=== PATIENT | female | born 1970 | race Caucasian/White ===

== ENCOUNTER 2017-03-12 09:52 | Emergency (ER) | payer MEDICAID ==
[2017-03-12 12:36] VITALS: BP 142/91
== END 2017-03-12 12:36 | disposition home or self-care (01) ==
LOC: ED 09:52
DX: R10.13 Epigastric pain (principal); R68.83 Chills (without fever); R11.0 Nausea; I10 Essential (primary) hypertension; E78.5 Hyperlipidemia, unspecified; Z88.0 Allergy status to penicillin

== ENCOUNTER 2018-12-16 10:37 | Emergency (ER) | payer MEDICAID ==
[~2018-12-16] VITALS: Ht 149.9 cm; Wt 70.8 kg
[2018-12-16 10:41] VITALS: BP 131/85; Ht 149.9 cm; Wt 70.8 kg
== END 2018-12-16 12:38 | disposition left against medical advice (07) ==
LOC: ED 10:37
DX: Z53.21 Procedure and treatment not carried out due to patient leaving prior to being seen by health care provider (principal)